=== PATIENT | male | born 1960 | race Caucasian/White ===

== ENCOUNTER → 2018-10-30 | Outpatient (CLI) | payer OTHER ==
[2018-10-30 09:22] LABS: ANION GAP 13.1; CHLORIDE,CL 107 mmol/L (101-111); SODIUM,NA 135 mmol/L (135-145)
== END ==
LOC: DL.LAB 07:54
PROVIDERS: ATTEND Internal Medicine
DX: Z48.23 Encounter for aftercare following liver transplant (principal); Z79.899 Other long term (current) drug therapy
CPT/HCPCS: 36415; 80053; 85027

== ENCOUNTER 2019-12-31 19:06 | Emergency (ER) | payer OTHER ==
--- NOTE | 2019-12-31 19:16 | EDM.PDOC ---
ED HPI GENERAL MEDICAL PROBLEM - General Chief Complaint: Trauma Stated Complaint: AMBULANCE Time Seen by Provider: 12/31/19 19:14 Source of Information: Reports: Patient History Limitations: Reports: No Limitations - History of Present Illness INITIAL COMMENTS - FREE TEXT/NARRATIVE: missed a step getting into tractor and fell twisting right ankle and hitting right side of head onto metal part. denies LOC, no N/V. drove self to ER. Right Ankle Pain Score (Numeric/FACES): 7 - Related Data Allergies Allergy/AdvReac Type Severity Reaction Status Date / Time morphine Allergy Other Verified 12/31/19 19:59 Home Meds: Home Meds Calcium Carbonate/Vitamin D3 [Calcium 600 + Vit D 200] 1 tab PO DAILY 03/21/17 [ History] Ferrous Sulfate 325 mg PO BEDTIME 03/21/17 [History] Multivitamin with Minerals [Multivitamins with Minerals] 1 tab PO DAILY [History] Tacrolimus [Prograf] 2 mg PO BID 03/21/17 [History] Triamcinolone Acetonide [Triamcinolone Acetonide 0.1% Crm] 1 applic TOP ASDIRECTED PRN 03/21/17 [History] atenoloL [Atenolol] 25 mg PO BEDTIME 03/21/17 [History] ursodioL [Ursodiol] 300 mg PO TID 03/21/17 [History] Tamsulosin HCl 0.4 tab PO DAILY 02/13/18 [History] Oxybutynin Chloride [Ditropan Xl] 10 mg PO DAILY 07/08/19 [History] Pantoprazole Sodium 40 mg PO DAILY 07/08/19 [History] Past Medical History HEENT History: Reports: None Cardiovascular History: Reports: Hypertension Respiratory History: Reports: None Gastrointestinal History: Reports: Chronic Diarrhea, Colon Polyp, Inflammatory Bowel Disease Genitourinary History: Reports: None Musculoskeletal History: Reports: None Neurological History: Reports: None Psychiatric History: Reports: None Endocrine/Metabolic History: Reports: None Hematologic History: Reports: B12 Deficiency, Blood Transfusion(s), Iron Deficiency Immunologic History: Reports: Immunosuppression Oncologic (Cancer) History: Reports: Other (See Below) Other Oncologic History: SOME KIND OF SKIN CA Dermatologic History: Reports: Other (See Below) Other Dermatologic History: 'SKIN HAS ISSUES R/T MY LIVER TRANSPLANT' PERIODIC - Infectious Disease History Infectious Disease History: Reports: Chicken Pox - Past Surgical History Head Surgeries/Procedures: Reports: None HEENT Surgical History: Reports: None Cardiovascular Surgical History: Reports: None Respiratory Surgical History: Reports: None GI Surgical History: Reports: Cholecystectomy, Colonoscopy, EGD, Hernia, Abdominal, Small Bowel, Other (See Below) Other GI Surgeries/Procedures: LIVER TRANSPLANT Male Surgical History: Reports: None Neurological Surgical History: Reports: None Musculoskeletal Surgical History: Reports: None Oncologic Surgical History: Reports: Other (See Below) Other Oncologic Surgeries/Procedures: SKIN EXCISION Dermatological Surgical History: Reports: Skin Biopsy Social & Family History - Family History Family Medical History: Noncontributory - Caffeine Use Caffeine Use: Reports: Coffee, Soda Other Caffeine Use: COFFEE 8 OZ. SODA 12 OZ Caffeine Use Comment: 12 OZ COFFEE. 12 OZ SODA Review of Systems - Review of Systems Review Of Systems: Comprehensive ROS is negative, except as noted in HPI. ED EXAM, GENERAL - Physical Exam Exam: See Below Exam Limited By: No Limitations General Appearance: Alert, WD/WN, Mild Distress, Other (discomfort) Ears: Hearing Grossly Normal Throat/Mouth: Normal Voice, No Airway Compromise Head: Other (right parietal 1/2" lac, no active bleeding, no O/B) Neck: Supple, Non-Tender, Full Range of Motion Respiratory/Chest: No Respiratory Distress Cardiovascular: Regular Rate, Rhythm GI/Abdominal: Soft, Non-Tender Extremities: Other (right ankle swollen tender R/P, NV wnl, gait limited to pain ) Neurological: Alert, Oriented, Normal Cognition, No Motor/Sensory Deficits Psychiatric: Normal Affect, Normal Mood Skin Exam: Warm, Dry, Normal Color Lymphatic: No Adenopathy ED TRAUMA PROCEDURES - Laceration/Wound Repair Right Head Lac/Wound Length In cm: 2 (right parietal) Appearance: Subcutaneous, Linear, Mildly Contaminated Anesthetic Type: Local Local Anesthesia - Lidocaine (Xylocaine): 1% Plain Local Anesthetic Volume: 5cc Skin Prep: Chlorhexidine (Hibiciens) Saline Irrigation (cc's): 20 Exploration/Debridement/Repair: Wound Explored, Minimal Debridement Closed With: Sutures Suture Size: 3-0 Suture Type: Nylon, Interrupted Sterile Dressing Applied: None Tetanus Status Addressed: Yes Complications: No - Splinting Right Lower Extremity Splint Site: ankle Splint Material: Fiberglass Splint Design: Sugar Tong Applied & Form Fitted By: Provider Provider Post-Splint Application NV Check: NV Status Normal, Good Position Complications: No Course - Vital Signs Last Recorded V/S: Last Vital Signs Temp 37.3 C 12/31/19 19:20 Pulse 62 12/31/19 19:20 Resp 16 12/31/19 19:20 BP 142/76 H 12/31/19 19:20 Pulse Ox 96 12/31/19 19:20 - Orders/Labs/Meds Orders: Active Orders 24 hr Category Date Time Status Vaccines to be Administered [RC] PER UNIT ROUTINE Care 12/31/19 20:06 Active Meds: Medications Discontinued Medications Generic Name Dose Route Start Last Admin Trade Name Freq PRN Reason Stop Dose Admin Diphtheria/Tetanus/Acell Pertussis 0.5 ml 12/31/19 20:06 Adacel IM 12/31/19 20:07 .ONCE ONE Departure - Departure Time of Disposition: 20:15 Disposition: Home, Self-Care 01 Condition: Good Clinical Impression: Laceration of scalp without complication Qualifiers: Encounter type: initial encounter Qualified Code(s): S01.01XA - Laceration without foreign body of scalp, initial encounter Ankle fracture, right Qualifiers: Encounter type: initial encounter Fracture type: closed Qualified Code(s): S82.891A - Other fracture of right lower leg, initial encounter for closed fracture - Discharge Information Instructions: Concussion, Adult, [id number] Forms: ED Department Discharge Additional Instructions: 1) elevate right leg ss much as possible till recheck by ORTHO 2) use crutches 3) keep scalp wound clean and dry 4) ice for swelling 5) suture removal 10 days 6) return if has head injury signs or if there is any change or concern 7) see clinic for ORTHOPEDIC REFERRAL FOR FRACTURE ANKLE Sepsis Event Note - Focused Exam Vital Signs: Vital Signs Temp Pulse Resp BP Pulse Ox 12/31/19 19:20 37.3 C 62 16 142/76 H 96 Date Exam was Performed: 12/31/19 Time Exam was Performed: 20:08 - My Orders Last 24 Hours: My Active Orders 12/31/19 20:06 Vaccines to be Administered [RC] PER UNIT ROUTINE - Assessment/Plan Last 24 Hours: My Active Orders 12/31/19 20:06 Vaccines to be Administered [RC] PER UNIT ROUTINE
[2019-12-31 19:21] VITALS: BP 142/76; PULSE 62
--- NOTE | 2019-12-31 19:34 | CR ---
PROCEDURE INFORMATION: Exam: XR Right Ankle Exam date and time: 12/31/2019 7:26 PM Age: 59 years old Clinical indication: Other: Pain; Additional info: Twisted TECHNIQUE: Imaging protocol: XR Right ankle. Views: 3 or more views. COMPARISON: No relevant prior studies available. FINDINGS: Bones/joints: Fibula: Nondisplaced oblique fracture distal fibular shaft at and above the level of the ankle joint space. Tibia: Nondisplaced vertical fracture posterior malleolus. Minimal widening medial aspect tibiotalar joint space medially. No definite medial malleolar fracture seen. Soft tissues: Diffuse soft tissue swelling. Probable ankle effusion. IMPRESSION: Distal fibular fracture. Posterior malleolar fracture. Medial ligamentous injury suspect.
[2019-12-31] MEDS ORDERED: Diphtheria,Pertussis(Acell),Tetanus Vaccine 0.5 ML SDV IM ONE (20:06)
== END 2019-12-31 20:23 | disposition home or self-care (01) ==
LOC: DL.ED 19:06
DX: S82.831A Other fracture of upper and lower end of right fibula, initial encounter for closed fracture (principal); S01.01XA Laceration without foreign body of scalp, initial encounter; I10 Essential (primary) hypertension; Z23 Encounter for immunization; Z88.5 Allergy status to narcotic agent; Z79.899 Other long term (current) drug therapy; X50.1XXA Overexertion from prolonged static or awkward postures, initial encounter
CPT/HCPCS: 12001; 29515; 73610-RT; 90471; 90715; 99283-25

== ENCOUNTER 2023-01-14 17:14 | Emergency (ER) | payer BC ==
[2023-01-14] MEDS ORDERED: Sodium Chloride 0.9% 1,000 ML IV ONE (17:35)
[2023-01-14] MEDS ORDERED: Ondansetron 4 MG/2 ML SDV IVPUSH ONE ×2 (17:37→20:46)
[2023-01-14] MEDS ORDERED: Sodium Chloride 0.9% 10 ML Syringe FLUSH PRN (17:37)
[2023-01-14] MEDS ORDERED: fentaNYL 100 MCG/2 ML SDV IVPUSH ONE ×3 (17:37→20:33)
[2023-01-14 17:55] LABS: BASOPHILS PERCENT AUTO 0.2 % (0.0-1.0); EOSINOPHILS PERCENT AUTO 3.1 % (1.0-3.0); HEMOGLOBIN 13.4 g/dL (14.0-18.0); LYMPHOCYTES PERCENT AUTO 15.5 % (20.5-50.1); MEAN CORPUSCULAR HGB CONC 33.5 g/dL (33.0-35.0); MEAN CORPUSCULAR VOLUME 89.7 fL (80-100); MONOCYTES PERCENT AUTO 7.6 % (2-8); NEUTROPHILS PERCENT AUTO 73.6 % (42.2-75.2); PLATELET COUNT,PLT 150 10^3/uL (150-450); RED BLOOD CELL COUNT 4.46 10^6/uL (4.6-6.2); WHITE BLOOD CELL COUNT,WBC 6.5 10^3/uL (5.0-10.0)
[2023-01-14 18:13] LABS: ALANINE AMINOTRANSFERASE,ALT 84 U/L (16-63); ALBUMIN 3.8 g/dL (3.4-5.0); ALKALINE PHOSPHATASE 252 U/L (46-116); AMYLASE 49 U/L (25-115); ANION GAP 13.5 mEq/L (7-13); ASPARTATE AMNIOTRANSFERASE,AST 51 U/L (15-37); BILIRUBIN TOTAL 1.6 mg/dL (0.2-1.0); BLOOD UREA NITROGEN,BUN 24 mg/dL (7-18); BUN/CREATININE RATIO 15.9 (No establ ref range); CALCIUM 9.1 mg/dL (8.5-10.1); CARBON DIOXIDE,CO2 25 mmol/L (21-32); CHLORIDE,CL 102 mmol/L (98-107); CREATININE 1.51 mg/dL (0.70-1.30); EST CRCL DRUG DOSING (CG) 58.06 mL/min; GLUCOSE RANDOM 121 mg/dL (70-99); LIPASE 107 U/L (73-393); MAGNESIUM 1.9 mg/dL (1.8-2.4); POTASSIUM,K 4.5 mmol/L (3.5-5.1); PROTEIN TOTAL,TP 7.5 g/dL (6.4-8.2); SODIUM,NA 136 mmol/L (136-145)
[2023-01-14 18:16] LABS: LACTIC ACID 0.4 mmol/L (0.4-2.0)
[2023-01-14 18:18] LABS: PROTHROMBIN TIME 10.2 SEC (9.0-12.0); PTT,PARTIAL THROMBOPLSTIN TIME 26.9 SEC (22.0-34.0)
[2023-01-14 18:19] LABS: ESTIMATED GFR 52 mL/min (>=60)
[2023-01-14 18:20] LABS: C-REACTIVE PROTEIN < 0.2 mg/dL (0.0-0.9)
[2023-01-14] MEDS ORDERED: Dicyclomine 20 MG/2 ML SDV IM ONE (18:25)
[2023-01-14] MEDS ORDERED: Iopamidol 612 MG/ML 100 ML Bottle IVPUSH ONE (18:29)
[2023-01-14 19:28] LABS: APPEARANCE,URINE CLEAR (CLEAR); BILIRUBIN,URINE NEGATIVE (NEGATIVE); COLOR,URINE YELLOW (YELLOW); GLUCOSE,URINE NEGATIVE (NEGATIVE); KETONES,URINE NEGATIVE (NEGATIVE); LEUKOCYTE ESTERASE,URINE NEGATIVE (NEGATIVE); NITRITE,URINE NEGATIVE (NEGATIVE); OCCULT BLOOD,URINE NEGATIVE (NEGATIVE); PROTEIN,URINE NEGATIVE (NEGATIVE); UROBILINOGEN,URINE 0.2 mg/dL (0.2-1.0)
[2023-01-14 19:34] VITALS: BP 157/94; PULSE 73
== END 2023-01-14 21:14 ==
LOC: DL.ED 17:14
DX: K56.609 Unspecified intestinal obstruction, unspecified as to partial versus complete obstruction (principal); I10 Essential (primary) hypertension; Z86.16 Personal history of COVID-19; Z79.899 Other long term (current) drug therapy; Z88.5 Allergy status to narcotic agent
CPT/HCPCS: 36415; 74018; 74177; 80053; 81003; 82150; 83605; 83690; 83735; 85025; 85610; 85730; 86140; 87040; 96372; 96374; 96375; 96376; 99285-25; J0500; J2405; J3010; J3490; J7030; Q9967